=== PATIENT | male | born 1930 | race Caucasian/White ===

== ENCOUNTER → 2016-03-21 | Outpatient (CLI) | payer MEDICARE ==
[~2016-03-21] MED LIST: ASPIRIN81 M1 PO; ATIVAN0.5 MG PO; ATIVAN1 MG PO; BUMETANIDE1 MG PO; CARAFATE1 GM/10 ML PO; CIPRO500 MG PO; COREG25 MG PO; COREG6.25 MG PO; Carafate1 GM/10 ML PO; FEROSUL325 MG PO; FLAGYL500 MG PO; HCTZ PO; IMDUR SA30 MG PO; ISOSORBIDE MONO30 MG PO; KLOR-CON M2020 ME1 PO; LEVAQUIN750 M1 PO; NORVASC10 MG PO; NORVASC5 MG PO; PANTOPRAZOLE SO40 MG PO; PLAVIX75 M1 PO; POTASSIUM CHLO20 MEQ PO; PRAVACHOL40 MG PO; PROTONIX40 MG PO; VYTORIN 10 MG-11 TA1 PO; [UNRECOGNIZED DRUG - OTHER] PO
== END | disposition home or self-care (01) ==
LOC: CT 10:38
DX: C78.7 Secondary malignant neoplasm of liver and intrahepatic bile duct (principal); C18.9 Malignant neoplasm of colon, unspecified; K27.4 Chronic or unspecified peptic ulcer, site unspecified, with hemorrhage; N28.1 Cyst of kidney, acquired; R10.13 Epigastric pain; K57.30 Diverticulosis of large intestine without perforation or abscess without bleeding; K80.20 Calculus of gallbladder without cholecystitis without obstruction; R11.0 Nausea; I51.7 Cardiomegaly; Z85.46 Personal history of malignant neoplasm of prostate

== ENCOUNTER 2016-09-13 09:47 | Inpatient (IN) | payer MEDICARE ==
[~2016-09-13] VITALS: Ht 170.1 cm; Wt 87.6 kg
[2016-09-13 09:51] VITALS: BP 138/66
[2016-09-13 10:08] LABS: BILIRUBIN 1+ (NEGATIVE); BLOOD NEGATIVE (NEGATIVE); CLARITY SL CLOUDY (CLEAR); COLOR YELLOW (YELLOW); GLUCOSE NEGATIVE (NEGATIVE); KETONE NEGATIVE (NEGATIVE); LEUKO ESTERASE NEGATIVE (NEGATIVE); NITRITE NEGATIVE (NEGATIVE); PROTEIN NEGATIVE (NEGATIVE)
[2016-09-13] MEDS ORDERED: PLAVIX75 M1 PO (10:15)
[2016-09-13 10:18] LABS: BACTERIA TRACE; EPITHELIAL CELLS 0-2; URINE REFLEX COMMENT NO (NO)
[2016-09-13 10:35] LABS: BASO % 0.2 % (0.0-1.0); EOS % 0.2 % (1.0-4.0); HEMATOCRIT 32.8 % (42.0-52.0); HEMOGLOBIN 9.7 g/dl (14.0-18.0); IG # 0.1 10*3/uL (0.0-0.1); LYMPH % 7.8 % (27.0-41.0); MEAN CELL VOLUME 75.8 fl (80.0-94.0); MEAN CORPUSCULAR HGB 22.4 pg (27.0-31.0); MEAN CORPUSCULAR HGB CONC 29.6 g/dl (33.0-37.0); MONO % 8.2 % (3.0-9.0); NEUT # 10.6 10*3/uL (2.3-7.9); NEUT % 83.2 % (47.0-73.0); PLATELET COUNT AUTOMATED 322 10*3/uL (130-400); RED BLOOD COUNT 4.33 10*6/uL (4.50-5.90); RED CELL DISTRI WIDTH 18.7 % (0-14.5); WHITE BLOOD COUNT 12.8 10*3/uL (4.8-10.8)
[2016-09-13 10:44] LABS: INTERNATIONAL NORM RATIO 1.1 (2.0-3.5); PROTHROMBIN TIME 11.7 SECONDS (9.0-12.4)
[2016-09-13 10:53] LABS: ALBUMIN 2.7 gm/dl (3.1-4.5); ALKALINE PHOSPHATASE 288 U/L (45-117); BUN 18 mg/dl (7-24); C-REACTIVE PROTEIN 7.98 MG/DL (0-0.3); CARBON DIOXIDE 25 mmol/L (21-32); CHLORIDE 103 mmol/L (98-107); CKMB 1.1 ng/ml (0.5-3.6); CPK 237 U/L (39-308); EST GLOM FILT AFRICAN AMERICAN > 60 ml/min; GLUCOSE 121 mg/dL (65-99); MAGNESIUM 2.2 mg/dL (1.5-2.1); POTASSIUM 3.7 mmol/L (3.5-5.1); SGOT/AST 207 IU/L (3-35); SGPT/ALT 211 U/L (12-78); SODIUM 139 mmol/L (136-145); TOTAL PROTEIN 7.3 gm/dL (6.4-8.2)
[2016-09-13 10:59] LABS: TROPONIN I < 0.015 ng/ml (<0.045)
[2016-09-13 11:01] VITALS: BP 128/64
[2016-09-13 11:31] VITALS: BP 123/58
[2016-09-13 13:10] VITALS: BP 123/45
[2016-09-13 16:00] VITALS: BP 131/55
[2016-09-13 20:00] VITALS: BP 133/52
[2016-09-14] VITALS: BP 109/59
[2016-09-14 06:01] LABS: ALBUMIN 2.3 gm/dl (3.1-4.5); ALKALINE PHOSPHATASE 233 U/L (45-117); BILIRUBIN, TOTAL 1.9 mg/dl (0.2-1.0); BUN 14 mg/dl (7-24); CARBON DIOXIDE 24 mmol/L (21-32); CHLORIDE 107 mmol/L (98-107); CHOLESTEROL 118 mg/dL (<200); EST GLOM FILT AFRICAN AMERICAN > 60 ml/min; FREE T4 1.04 ng/dl (0.76-1.46); GLUCOSE 102 mg/dL (65-99); HDL CHOLESTEROL 29 mg/dl (40-60); LDL CHOLESTEROL 76 mg/dL (9-159); PHOSPHOROUS 2.8 mg/dL (2.5-4.9); POTASSIUM 3.6 mmol/L (3.5-5.1); SGOT/AST 112 IU/L (3-35); SGPT/ALT 156 U/L (12-78); SODIUM 142 mmol/L (136-145); TOTAL PROTEIN 6.1 gm/dL (6.4-8.2); TRIGLYCERIDES 64 mg/dl (<150); VLDL CHOLESTEROL 13 mg/dL (6-40)
[2016-09-14 06:02] LABS: BASO % 0.2 % (0.0-1.0); EOS # 0.2 10*3/uL (0.0-0.4); EOS % 2.9 % (1.0-4.0); HEMATOCRIT 28.6 % (42.0-52.0); HEMOGLOBIN 8.3 g/dl (14.0-18.0); IG # 0.1 10*3/uL (0.0-0.1); LYMPH # 0.8 10*3/uL (1.3-4.4); LYMPH % 9.7 % (27.0-41.0); MEAN CELL VOLUME 76.3 fl (80.0-94.0); MEAN CORPUSCULAR HGB 22.1 pg (27.0-31.0); MEAN PLATELET VOLUME 9.4 fl (9.6-12.3); MONO # 0.8 10*3/uL (0.1-1.0); MONO % 10.2 % (3.0-9.0); NEUT # 6.3 10*3/uL (2.3-7.9); NEUT % 76.4 % (47.0-73.0); PLATELET COUNT AUTOMATED 292 10*3/uL (130-400); RED BLOOD COUNT 3.75 10*6/uL (4.50-5.90); RED CELL DISTRI WIDTH 18.6 % (0-14.5); WHITE BLOOD COUNT 8.2 10*3/uL (4.8-10.8)
[2016-09-14 06:58] LABS: HEMOGLOBIN A1c 5.1 % (4.8-5.6)
[2016-09-14 07:10] LABS: VITAMIN D, 25-HYDROXY 15.5 ng/mL (30-100)
[2016-09-14 07:19] LABS: FOLIC ACID > 24.00 ng/mL (>5.38)
[2016-09-14 08:00] VITALS: BP 109/54
[2016-09-14 12:00] VITALS: BP 112/56
[2016-09-14 16:00] VITALS: BP 117/55
[2016-09-14 20:00] VITALS: BP 111/55
[2016-09-15] VITALS: BP 104/48
[2016-09-15 06:27] LABS: BASO % 0.4 % (0.0-1.0); EOS # 0.4 10*3/uL (0.0-0.4); EOS % 5.7 % (1.0-4.0); HEMATOCRIT 28.1 % (42.0-52.0); HEMOGLOBIN 7.9 g/dl (14.0-18.0); LYMPH % 12.9 % (27.0-41.0); MEAN CELL VOLUME 77.4 fl (80.0-94.0); MEAN CORPUSCULAR HGB 21.8 pg (27.0-31.0); MEAN CORPUSCULAR HGB CONC 28.1 g/dl (33.0-37.0); MONO # 0.7 10*3/uL (0.1-1.0); MONO % 9.4 % (3.0-9.0); NEUT # 5.2 10*3/uL (2.3-7.9); NEUT % 71.2 % (47.0-73.0); PLATELET COUNT AUTOMATED 281 10*3/uL (130-400); RED BLOOD COUNT 3.63 10*6/uL (4.50-5.90); RED CELL DISTRI WIDTH 18.9 % (0-14.5); WHITE BLOOD COUNT 7.4 10*3/uL (4.8-10.8)
[2016-09-15 06:54] LABS: ALKALINE PHOSPHATASE 239 U/L (45-117); BILIRUBIN, TOTAL 0.8 mg/dl (0.2-1.0); BUN 17 mg/dl (7-24); CARBON DIOXIDE 24 mmol/L (21-32); CHLORIDE 109 mmol/L (98-107); EST GLOM FILT AFRICAN AMERICAN > 60 ml/min; GLUCOSE 96 mg/dL (65-99); PHOSPHOROUS 2.1 mg/dL (2.5-4.9); POTASSIUM 3.8 mmol/L (3.5-5.1); SGOT/AST 81 IU/L (3-35); SGPT/ALT 125 U/L (12-78); SODIUM 141 mmol/L (136-145); TOTAL PROTEIN 5.7 gm/dL (6.4-8.2)
[2016-09-15 08:00] VITALS: BP 102/42
[2016-09-15 10:45] VITALS: BP 100/48
[2016-09-15 16:00] VITALS: BP 109/59
[2016-09-15 20:00] VITALS: BP 117/55
[2016-09-16] VITALS: BP 111/50
[2016-09-16 06:29] LABS: BASO % 0.4 % (0.0-1.0); EOS # 0.5 10*3/uL (0.0-0.4); EOS % 6.9 % (1.0-4.0); HEMATOCRIT 29.4 % (42.0-52.0); HEMOGLOBIN 8.6 g/dl (14.0-18.0); LYMPH % 13.2 % (27.0-41.0); MEAN CORPUSCULAR HGB 22.8 pg (27.0-31.0); MEAN CORPUSCULAR HGB CONC 29.3 g/dl (33.0-37.0); MONO # 0.5 10*3/uL (0.1-1.0); MONO % 7.2 % (3.0-9.0); NEUT # 5.3 10*3/uL (2.3-7.9); NEUT % 71.9 % (47.0-73.0); PLATELET COUNT AUTOMATED 321 10*3/uL (130-400); RED BLOOD COUNT 3.77 10*6/uL (4.50-5.90); RED CELL DISTRI WIDTH 19.2 % (0-14.5); WHITE BLOOD COUNT 7.4 10*3/uL (4.8-10.8)
[2016-09-16 06:54] LABS: ALBUMIN 2.1 gm/dl (3.1-4.5); ALKALINE PHOSPHATASE 261 U/L (45-117); BILIRUBIN, TOTAL 0.5 mg/dl (0.2-1.0); BUN 14 mg/dl (7-24); CARBON DIOXIDE 26 mmol/L (21-32); CHLORIDE 111 mmol/L (98-107); EST GLOM FILT AFRICAN AMERICAN > 60 ml/min; GLUCOSE 91 mg/dL (65-99); MAGNESIUM 2.2 mg/dL (1.5-2.1); PHOSPHOROUS 1.8 mg/dL (2.5-4.9); POTASSIUM 4.2 mmol/L (3.5-5.1); SGOT/AST 44 IU/L (3-35); SGPT/ALT 97 U/L (12-78); SODIUM 144 mmol/L (136-145); TOTAL PROTEIN 5.9 gm/dL (6.4-8.2)
[2016-09-16 08:00] VITALS: BP 124/60
[2016-09-16 12:00] VITALS: BP 124/54
[2016-09-16 16:00] VITALS: BP 116/55
[2016-09-16] MEDS ORDERED: CIPRO500 MG PO (17:57)
[2016-09-16 20:00] VITALS: BP 124/57
[2016-09-17] VITALS: BP 113/55
[2016-09-17 06:10] LABS: BASO # 0.1 10*3/uL (0.0-0.1); BASO % 0.6 % (0.0-1.0); EOS # 0.6 10*3/uL (0.0-0.4); EOS % 6.9 % (1.0-4.0); HEMATOCRIT 31.2 % (42.0-52.0); LYMPH % 12.7 % (27.0-41.0); MEAN CELL VOLUME 78.2 fl (80.0-94.0); MEAN CORPUSCULAR HGB 22.6 pg (27.0-31.0); MEAN CORPUSCULAR HGB CONC 28.8 g/dl (33.0-37.0); MEAN PLATELET VOLUME 9.1 fl (9.6-12.3); MONO # 0.6 10*3/uL (0.1-1.0); MONO % 7.1 % (3.0-9.0); NEUT # 5.9 10*3/uL (2.3-7.9); NEUT % 72.2 % (47.0-73.0); PLATELET COUNT AUTOMATED 344 10*3/uL (130-400); RED BLOOD COUNT 3.99 10*6/uL (4.50-5.90); RED CELL DISTRI WIDTH 19.4 % (0-14.5); WHITE BLOOD COUNT 8.2 10*3/uL (4.8-10.8)
[2016-09-17 06:48] LABS: CHLORIDE 109 mmol/L (98-107); POTASSIUM 4.3 mmol/L (3.5-5.1); SODIUM 141 mmol/L (136-145)
[2016-09-17 06:53] LABS: ALBUMIN 2.1 gm/dl (3.1-4.5); ALKALINE PHOSPHATASE 248 U/L (45-117); BILIRUBIN, TOTAL 0.5 mg/dl (0.2-1.0); BUN 16 mg/dl (7-24); CARBON DIOXIDE 25 mmol/L (21-32); EST GLOM FILT AFRICAN AMERICAN > 60 ml/min; GLUCOSE 96 mg/dL (65-99); SGOT/AST 34 IU/L (3-35); SGPT/ALT 74 U/L (12-78); TOTAL PROTEIN 6.1 gm/dL (6.4-8.2)
[2016-09-17 08:00] VITALS: BP 138/60
[2016-09-17 12:00] VITALS: BP 136/74
[2016-09-17 16:00] VITALS: BP 111/46; BP 122/46
[2016-09-17 20:00] VITALS: BP 100/44
[2016-09-18] VITALS: BP 135/72
[2016-09-18 06:16] LABS: BASO # 0.1 10*3/uL (0.0-0.1); BASO % 0.6 % (0.0-1.0); EOS # 0.4 10*3/uL (0.0-0.4); EOS % 3.7 % (1.0-4.0); HEMATOCRIT 30.7 % (42.0-52.0); HEMOGLOBIN 8.9 g/dl (14.0-18.0); LYMPH # 1.1 10*3/uL (1.3-4.4); LYMPH % 11.6 % (27.0-41.0); MEAN CELL VOLUME 77.5 fl (80.0-94.0); MEAN CORPUSCULAR HGB 22.5 pg (27.0-31.0); MEAN PLATELET VOLUME 9.5 fl (9.6-12.3); MONO # 0.6 10*3/uL (0.1-1.0); MONO % 6.5 % (3.0-9.0); NEUT # 7.6 10*3/uL (2.3-7.9); NEUT % 77.2 % (47.0-73.0); PLATELET COUNT AUTOMATED 370 10*3/uL (130-400); RED BLOOD COUNT 3.96 10*6/uL (4.50-5.90); RED CELL DISTRI WIDTH 19.5 % (0-14.5); WHITE BLOOD COUNT 9.9 10*3/uL (4.8-10.8)
[2016-09-18 06:38] LABS: ALBUMIN 2.2 gm/dl (3.1-4.5); ALKALINE PHOSPHATASE 232 U/L (45-117); BILIRUBIN, TOTAL 0.5 mg/dl (0.2-1.0); BUN 17 mg/dl (7-24); CARBON DIOXIDE 25 mmol/L (21-32); CHLORIDE 106 mmol/L (98-107); EST GLOM FILT AFRICAN AMERICAN > 60 ml/min; GLUCOSE 95 mg/dL (65-99); MAGNESIUM 2.1 mg/dL (1.5-2.1); POTASSIUM 3.9 mmol/L (3.5-5.1); SGOT/AST 26 IU/L (3-35); SGPT/ALT 59 U/L (12-78); SODIUM 140 mmol/L (136-145); TOTAL PROTEIN 6.2 gm/dL (6.4-8.2)
[2016-09-18 08:00] VITALS: BP 131/63
[2016-09-18 12:00] VITALS: BP 131/58
== END 2016-09-18 15:24 | disposition other institution (70) | DRG 435 ==
LOC: ED 09:47 → 5E 11:26 → EDHOLD 11:26 → 5E 11:36
PROVIDERS: Emergency Medicine; Internal Medicine
DX: C78.7 Secondary malignant neoplasm of liver and intrahepatic bile duct (principal); E43 Unspecified severe protein-calorie malnutrition; G93.41 Metabolic encephalopathy; E86.0 Dehydration; C18.9 Malignant neoplasm of colon, unspecified; R78.81 Bacteremia; I11.9 Hypertensive heart disease without heart failure; E78.5 Hyperlipidemia, unspecified; D50.9 Iron deficiency anemia, unspecified; R10.10 Upper abdominal pain, unspecified; R26.81 Unsteadiness on feet; R07.9 Chest pain, unspecified; D72.820 Lymphocytosis (symptomatic); K80.20 Calculus of gallbladder without cholecystitis without obstruction; H91.90 Unspecified hearing loss, unspecified ear; Z96.652 Presence of left artificial knee joint; Z85.038 Personal history of other malignant neoplasm of large intestine; Z90.79 Acquired absence of other genital organ(s); Z85.46 Personal history of malignant neoplasm of prostate; Z98.61 Coronary angioplasty status; Z82.3 Family history of stroke; Z91.81 History of falling; Z79.899 Other long term (current) drug therapy

== ENCOUNTER 2016-10-29 07:57 | Inpatient (IN) | payer MEDICARE ==
[~2016-10-29] VITALS: Ht 182.8 cm; Wt 71.8 kg
[2016-10-29 07:57] VITALS: BP 119/54
[2016-10-29 08:59] LABS: BASO # 0.1 10*3/uL (0.0-0.1); BASO % 0.4 % (0.0-1.0); EOS # 0.1 10*3/uL (0.0-0.4); EOS % 0.4 % (1.0-4.0); HEMATOCRIT 39.1 % (42.0-52.0); HEMOGLOBIN 11.8 g/dl (14.0-18.0); IG # 0.1 10*3/uL (0.0-0.1); LYMPH # 1.2 10*3/uL (1.3-4.4); LYMPH % 7.1 % (27.0-41.0); MEAN CORPUSCULAR HGB 23.2 pg (27.0-31.0); MEAN CORPUSCULAR HGB CONC 30.2 g/dl (33.0-37.0); MEAN PLATELET VOLUME 9.5 fl (9.6-12.3); MONO # 0.8 10*3/uL (0.1-1.0); NEUT # 14.7 10*3/uL (2.3-7.9); NEUT % 86.6 % (47.0-73.0); PLATELET COUNT AUTOMATED 404 10*3/uL (130-400); RED BLOOD COUNT 5.08 10*6/uL (4.50-5.90); RED CELL DISTRI WIDTH 18.3 % (0-14.5)
[2016-10-29 09:05] LABS: BILIRUBIN NEGATIVE (NEGATIVE); BLOOD NEGATIVE (NEGATIVE); CLARITY CLEAR (CLEAR); COLOR YELLOW (YELLOW); GLUCOSE NEGATIVE (NEGATIVE); KETONE NEGATIVE (NEGATIVE); LEUKO ESTERASE NEGATIVE (NEGATIVE); NITRITE NEGATIVE (NEGATIVE); PROTEIN NEGATIVE (NEGATIVE); UROBILINOGEN 0.2 E.U./dl (0.2-1.0)
[2016-10-29 09:10] LABS: RBC 0-2 rbc/hpf (0-2); URINE REFLEX COMMENT NO (NO)
[2016-10-29 09:14] LABS: ALBUMIN 3.5 gm/dl (3.1-4.5); BILIRUBIN, TOTAL 0.4 mg/dl (0.2-1.0); POTASSIUM 2.8 mmol/L (3.5-5.1); TOTAL PROTEIN 9.1 gm/dL (6.4-8.2)
[2016-10-29 10:12] VITALS: BP 132/77
[2016-10-29 12:00] VITALS: BP 121/74
[2016-10-29] MEDS ORDERED: EFFEXOR XR37.5 M1 PO (12:20)
[2016-10-29] MEDS ORDERED: RESTORIL15 MG PO (12:22)
[2016-10-29] MEDS ORDERED: TYLENOL325 M1 PO (12:23)
[2016-10-29] MEDS ORDERED: TWOCAL HN 237237 ML PO (12:26)
[2016-10-29 13:01] LABS: LA>2 REFLEX 2 HR DRAW NOW
[2016-10-29 13:20] LABS: LA>2 RFLX FOLLOW UP AT 2 HRS 2.7 mmol/L (0.4-2.0)
[2016-10-29 15:14] LABS: LA>2 REFLEX 4 HR DRAW NOW
[2016-10-29 16:00] VITALS: BP 132/63
[2016-10-30] VITALS: BP 118/58
[2016-10-30 04:49] LABS: BASO % 0.3 % (0.0-1.0); EOS # 0.1 10*3/uL (0.0-0.4); HEMATOCRIT 35.3 % (42.0-52.0); HEMOGLOBIN 10.3 g/dl (14.0-18.0); IG # 0.1 10*3/uL (0.0-0.1); LYMPH % 8.9 % (27.0-41.0); MEAN CELL VOLUME 78.3 fl (80.0-94.0); MEAN CORPUSCULAR HGB 22.8 pg (27.0-31.0); MEAN CORPUSCULAR HGB CONC 29.2 g/dl (33.0-37.0); MEAN PLATELET VOLUME 9.2 fl (9.6-12.3); MONO # 0.7 10*3/uL (0.1-1.0); MONO % 6.2 % (3.0-9.0); NEUT # 9.7 10*3/uL (2.3-7.9); NEUT % 83.2 % (47.0-73.0); PLATELET COUNT AUTOMATED 301 10*3/uL (130-400); RED BLOOD COUNT 4.51 10*6/uL (4.50-5.90); RED CELL DISTRI WIDTH 18.4 % (0-14.5); WHITE BLOOD COUNT 11.7 10*3/uL (4.8-10.8)
[2016-10-30 05:07] LABS: ALBUMIN 2.8 gm/dl (3.1-4.5); BILIRUBIN, TOTAL 0.4 mg/dl (0.2-1.0); MAGNESIUM 2.9 mg/dL (1.5-2.1); PHOSPHOROUS 2.7 mg/dL (2.5-4.9); POTASSIUM 2.6 mmol/L (3.5-5.1); TOTAL PROTEIN 7.5 gm/dL (6.4-8.2)
[2016-10-30 08:00] VITALS: BP 148/64
[2016-10-30 12:00] VITALS: BP 156/78
[2016-10-30 16:00] VITALS: BP 141/57
[2016-10-30 20:00] VITALS: BP 143/76
[2016-10-31] VITALS: BP 126/65
[2016-10-31 05:45] LABS: ALBUMIN 2.6 gm/dl (3.1-4.5); ALKALINE PHOSPHATASE 120 U/L (45-117); BILIRUBIN, TOTAL 0.4 mg/dl (0.2-1.0); CARBON DIOXIDE 28 mmol/L (21-32); CHLORIDE 111 mmol/L (98-107); EST GLOM FILT AFRICAN AMERICAN > 60 ml/min; GLUCOSE 103 mg/dL (65-99); POTASSIUM 2.8 mmol/L (3.5-5.1); SGOT/AST 18 IU/L (3-35); SGPT/ALT 13 U/L (12-78); SODIUM 147 mmol/L (136-145); TOTAL PROTEIN 7.1 gm/dL (6.4-8.2)
[2016-10-31 05:50] LABS: BUN 40 mg/dl (7-24)
[2016-10-31 06:10] LABS: BASO # 0.1 10*3/uL (0.0-0.1); BASO % 0.4 % (0.0-1.0); EOS # 0.2 10*3/uL (0.0-0.4); EOS % 1.4 % (1.0-4.0); HEMATOCRIT 32.9 % (42.0-52.0); HEMOGLOBIN 9.6 g/dl (14.0-18.0); IG # 0.1 10*3/uL (0.0-0.1); LYMPH # 1.4 10*3/uL (1.3-4.4); LYMPH % 10.2 % (27.0-41.0); MEAN CELL VOLUME 80.8 fl (80.0-94.0); MEAN CORPUSCULAR HGB 23.6 pg (27.0-31.0); MEAN CORPUSCULAR HGB CONC 29.2 g/dl (33.0-37.0); MEAN PLATELET VOLUME 9.9 fl (9.6-12.3); MONO # 1.1 10*3/uL (0.1-1.0); MONO % 7.4 % (3.0-9.0); NEUT # 11.3 10*3/uL (2.3-7.9); NEUT % 80.2 % (47.0-73.0); PLATELET COUNT AUTOMATED 275 10*3/uL (130-400); RED BLOOD COUNT 4.07 10*6/uL (4.50-5.90); RED CELL DISTRI WIDTH 18.6 % (0-14.5); WHITE BLOOD COUNT 14.1 10*3/uL (4.8-10.8)
[2016-10-31 08:00] VITALS: BP 134/64
[2016-10-31 16:00] VITALS: BP 133/60
[2016-11-01] VITALS: BP 148/70
[2016-11-01 05:24] LABS: ALBUMIN 2.5 gm/dl (3.1-4.5); ALKALINE PHOSPHATASE 107 U/L (45-117); BILIRUBIN, TOTAL 0.4 mg/dl (0.2-1.0); CARBON DIOXIDE 28 mmol/L (21-32); CHLORIDE 114 mmol/L (98-107); EST GLOM FILT AFRICAN AMERICAN > 60 ml/min; GLUCOSE 126 mg/dL (65-99); POTASSIUM 3.2 mmol/L (3.5-5.1); SGOT/AST 17 IU/L (3-35); SGPT/ALT 14 U/L (12-78); SODIUM 147 mmol/L (136-145)
[2016-11-01 05:27] LABS: BUN 26 mg/dl (7-24)
[2016-11-01 05:54] LABS: BASO # 0.1 10*3/uL (0.0-0.1); BASO % 0.4 % (0.0-1.0); EOS # 0.2 10*3/uL (0.0-0.4); EOS % 1.5 % (1.0-4.0); HEMATOCRIT 31.8 % (42.0-52.0); HEMOGLOBIN 9.3 g/dl (14.0-18.0); LYMPH % 8.2 % (27.0-41.0); MEAN CELL VOLUME 81.1 fl (80.0-94.0); MEAN CORPUSCULAR HGB 23.7 pg (27.0-31.0); MEAN CORPUSCULAR HGB CONC 29.2 g/dl (33.0-37.0); MEAN PLATELET VOLUME 9.8 fl (9.6-12.3); MONO # 0.8 10*3/uL (0.1-1.0); MONO % 6.3 % (3.0-9.0); NEUT # 10.3 10*3/uL (2.3-7.9); NEUT % 83.3 % (47.0-73.0); PLATELET COUNT AUTOMATED 273 10*3/uL (130-400); RED BLOOD COUNT 3.92 10*6/uL (4.50-5.90); RED CELL DISTRI WIDTH 18.5 % (0-14.5); WHITE BLOOD COUNT 12.4 10*3/uL (4.8-10.8)
[2016-11-01 08:00] VITALS: BP 150/75
[2016-11-01 12:00] VITALS: BP 107/58
== END 2016-11-01 12:45 | disposition other institution (70) | DRG 871 ==
LOC: ED 07:57 → EDHOLD 11:00 → 4E 11:00 → 5E 11:20 → 4E 11:40
PROVIDERS: Emergency Medicine; Internal Medicine Hospice and Palliative Medicine; Registered Nurse
DX: A41.9 Sepsis, unspecified organism (principal); G93.41 Metabolic encephalopathy; E43 Unspecified severe protein-calorie malnutrition; N17.9 Acute kidney failure, unspecified; E87.0 Hyperosmolality and hypernatremia; C78.7 Secondary malignant neoplasm of liver and intrahepatic bile duct; K92.2 Gastrointestinal hemorrhage, unspecified; E86.0 Dehydration; E87.2 Acidosis; C18.9 Malignant neoplasm of colon, unspecified; E87.8 Other disorders of electrolyte and fluid balance, not elsewhere classified; E83.39 Other disorders of phosphorus metabolism; Z66 Do not resuscitate; Z51.5 Encounter for palliative care; Z96.652 Presence of left artificial knee joint; E78.5 Hyperlipidemia, unspecified; D47.3 Essential (hemorrhagic) thrombocythemia; E87.6 Hypokalemia; D64.9 Anemia, unspecified; R73.9 Hyperglycemia, unspecified; E83.41 Hypermagnesemia; I10 Essential (primary) hypertension; Z79.899 Other long term (current) drug therapy; Z68.21 Body mass index [BMI] 21.0-21.9, adult; Z85.46 Personal history of malignant neoplasm of prostate; Z90.79 Acquired absence of other genital organ(s); Z82.3 Family history of stroke

== ENCOUNTER 2017-01-02 01:19 | Inpatient (IN) | payer MEDICARE ==
[~2017-01-02] VITALS: Ht 170.1 cm; Wt 71.7 kg
--- NOTE | ~2017-01-02 | CON ---
[place], [place] REPORT OF CONSULTATION NAME: CHARLA WELCH [facility] #: [id number] UNIT #: [id number] ROOM: 506 DOCTOR: JAYDEN SINGH MD BIRTHDATE: [birth year] DOS: 01/02/2017 ATTENDING PHYSICIAN: Dr. Germaine Scott. 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 1. History of benign essential hypertension. 2. Generalized weakness and adult failure to thrive and old age. 3. Generalized weakness and adult failure to thrive. 4. History of prostate cancer in the remote past. 5. Mixed hyperlipidemia. 6. Severe protein-calorie malnutrition. 7. Unsteady gait with ambulatory dysfunction. The patient is presently admitted under care of Dr. Germaine Scott and Dr. Dennis Saha. With acute GI bleed and history of colon cancer with liver metastasis; apparently, the patient is without any chest pain, no shortness of breath, but he has excessive weakness and is also mentally confused. The patient's family as recorded. does not want any aggressive measures and chest for the patient to be kept comfortable. Presently, the patient is receiving hydration with IV fluids and comfort measures only. The patient maintains a DNR comfort care code status. REVIEW OF SYSTEMS: LUNGS: No increasing shortness of breath or wheezing. GASTROINTESTINAL: The patient was observed to have blood in his stools. CARDIOVASCULAR: No chest pain or palpitations. SOCIAL HISTORY: No recent nicotine, alcohol or drug abuse. FAMILY HISTORY: Noncontributory for any issues. PRESENT MEDICATIONS: The patient on temazepam, hydration with IV fluids, Vicodin and IV morphine as needed. ALLERGIES: No known drug allergies. PHYSICAL EXAMINATION: GENERAL: Awake, alert, very weak, unable to answer questions, just follows basic commands. The patient able to move all extremities except for mental confusion and generalized weakness. LABORATORY DATA: PT, PTT baseline. Vitamin D level is low at 10, potassium level low at 3.4, sodium 134, BUN and creatinine normal. Hemoglobin low at 9.1 with MCV low at 77 and MCH low at 23, platelets normal. Albumin low at 2.3. IMPRESSION AND PLAN: The patient with old age, advanced disability and adult failure to thrive with advanced metastatic colon cancer with metastasis to the liver, presently with acute gastrointestinal bleed. The patient maintains a DNR [place], [place] REPORT OF CONSULTATION NAME: CHARLA WELCH UNIT #: [id number] ROOM: 506 DOCTOR: JAYDEN SINGH MD BIRTHDATE: [birth year] comfort care code status. The patient requires end of life care with hospice consult, which can be performed if the patient's family wants to take him home, but then somebody will require to stay with them, 24 hours a day to provide comfort care versus the patient can be transferred to a nursing facility with hospice consult. I recommend sublingual morphine concentrate, Roxanol and Ativan to be used 10-20 mg every 1-2 hours only as needed because the patient is very comfortable at the moment. For anxiety and agitation, the patient can also use 1-2 mg of Ativan oral concentrate every 4 hours as needed for comfort care. In case of extra respiratory secretions and congestion, the patient can be given atropine drops as needed. The feeding as tolerated orally, every 2 hour turning to prevent bedsores and good skin care and hygiene. The patient's prognosis remains extremely poor and he is appropriately being treated with comfort care measures only. I am trying to contact the patient's , Florencia Welch, so I can discuss these measures with her and to decide on the future course of treatment. Two attempts were made to contact his and she was not available by the phone. Thank you, Dr. Germaine Scott and Dr. Dennis Saha for consulting me. We will follow the patient along with you. JAYDEN SINGH MD CM:CONSTR:REPORT OF CONSULTATION 16 01/02/172225 interface
[~2017-01-02 01:19] MED LIST changes: +EFFEXOR XR37.5 M1 PO; +RESTORIL15 MG PO; +TWOCAL HN 237237 ML PO; +TYLENOL325 M1 PO
[2017-01-02 01:25] VITALS: BP 128/53
[2017-01-02 01:51] LABS: BASO # 0.1 10*3/uL (0.0-0.1); BASO % 0.4 % (0.0-1.0); EOS # 0.2 10*3/uL (0.0-0.4); EOS % 1.4 % (1.0-4.0); HEMOGLOBIN 9.1 g/dl (14.0-18.0); LYMPH # 1.7 10*3/uL (1.3-4.4); LYMPH % 14.4 % (27.0-41.0); MEAN CELL VOLUME 76.3 fl (80.0-94.0); MEAN CORPUSCULAR HGB 23.2 pg (27.0-31.0); MEAN CORPUSCULAR HGB CONC 30.3 g/dl (33.0-37.0); MEAN PLATELET VOLUME 8.4 fl (9.6-12.3); MONO # 0.9 10*3/uL (0.1-1.0); MONO % 7.7 % (3.0-9.0); NEUT % 75.5 % (47.0-73.0); PLATELET COUNT AUTOMATED 404 10*3/uL (130-400); RED BLOOD COUNT 3.93 10*6/uL (4.50-5.90); RED CELL DISTRI WIDTH 18.2 % (0-14.5); WHITE BLOOD COUNT 11.9 10*3/uL (4.8-10.8)
[2017-01-02 02:03] LABS: ACT PARTIAL THROMBO TIME 27.5 SECONDS (20.8-31.5)
[2017-01-02 02:08] VITALS: BP 117/51
[2017-01-02 02:08] LABS: ALBUMIN 2.3 gm/dl (3.1-4.5); ALKALINE PHOSPHATASE 109 U/L (45-117); BUN 29 mg/dl (7-24); CHLORIDE 94 mmol/L (98-107); CREATININE 1.08 mg/dL (0.70-1.30); POTASSIUM 3.8 mmol/L (3.5-5.1); SGOT/AST 16 IU/L (3-35); SGPT/ALT 14 U/L (12-78); SODIUM 134 mmol/L (136-145); TOTAL PROTEIN 7.2 gm/dL (6.4-8.2)
[2017-01-02 02:09] LABS: TROPONIN I < 0.015 ng/ml (<0.045)
[2017-01-02 02:30] VITALS: BP 124/53
[2017-01-02 03:00] VITALS: BP 126/69
--- NOTE | 2017-01-02 03:00 | NUR ---
Time: 299 A 86 year old MALE admitted to 5E under services of DANIEL LOMBARDO DO. Pt. arrived via stretcher from ER. Chief complaint: CAME IN FROM [facility] WITH C/O BRIGHT RED RECTAL BLEEDING. JESENIA KENNEDY
--- NOTE | 2017-01-02 03:12 | NUR ---
PT INCONT OF LARGE AMOUNT OF LIQUID BLACK/BROWN STOOL. PT CLEANED AND BED CHANGED TOLERATED WELL. SKIN INTACT. REDDENED COCCYX BUTTOCKS BUT INTACT. WELL HEELS REDDENED BUT INTACT AND BLANCHEABLE
[2017-01-02] MEDS ORDERED: BISACODYL5 MG PO (03:44)
[2017-01-02] MEDS ORDERED: Zofran4 MG SL (03:45)
[2017-01-02 06:37] LABS: BASO # 0.1 10*3/uL (0.0-0.1); BASO % 0.8 % (0.0-1.0); EOS # 0.2 10*3/uL (0.0-0.4); EOS % 1.8 % (1.0-4.0); HEMATOCRIT 30.3 % (42.0-52.0); HEMOGLOBIN 9.1 g/dl (14.0-18.0); LYMPH # 1.5 10*3/uL (1.3-4.4); LYMPH % 14.1 % (27.0-41.0); MEAN CELL VOLUME 77.7 fl (80.0-94.0); MEAN CORPUSCULAR HGB 23.3 pg (27.0-31.0); MEAN PLATELET VOLUME 8.6 fl (9.6-12.3); MONO # 0.9 10*3/uL (0.1-1.0); MONO % 8.2 % (3.0-9.0); NEUT # 7.7 10*3/uL (2.3-7.9); NEUT % 74.3 % (47.0-73.0); PLATELET COUNT AUTOMATED 410 10*3/uL (130-400); RED CELL DISTRI WIDTH 18.5 % (0-14.5); WHITE BLOOD COUNT 10.4 10*3/uL (4.8-10.8)
[2017-01-02 06:57] LABS: BUN 30 mg/dl (7-24); CHLORIDE 97 mmol/L (98-107); CREATININE 1.04 mg/dL (0.70-1.30); POTASSIUM 3.4 mmol/L (3.5-5.1); SODIUM 134 mmol/L (136-145)
[2017-01-02 07:04] LABS: VITAMIN D, 25-HYDROXY 10.7 ng/mL (30-100)
[2017-01-02 07:17] LABS: ACT PARTIAL THROMBO TIME 27.4 SECONDS (20.8-31.5)
[2017-01-02 08:00] VITALS: BP 124/69
--- NOTE | 2017-01-02 08:48 | NUR ---
Patient is LTC at [facility] and can return when medically stable for discharge.
--- NOTE | 2017-01-02 10:05 | NUR ---
PATIENT ATTENDANT REPORTS DARK TAR LIKE STOOLS WHEN BATHING THE PATIENT.
--- NOTE | 2017-01-02 10:36 | NUR ---
ATTEMPTED TO CALL CONSULT FOR PALIATIVE CARE. SENT TO [facility] OF ARACELI BENAVIDEZ CNP. A MESSAGE WAS LEFT WITH A REQUEST TO CALL BACK.
--- NOTE | 2017-01-02 10:59 | NUR ---
PHYSICAL THERAPY PAtient unable to verbally communitcate or participate in PT this date. PAtient just stares. Will attempt at a later date. Thank you for this referral. Breann Hernandez,PT
[2017-01-02 16:00] VITALS: BP 113/55
--- NOTE | 2017-01-02 21:00 | NUR ---
RESTING WITH EYES CLOSED. RESPIRATIONS EASY. LUNGS DIMINISHED, CLEAR. TRACE BLE EDEMA, TEDS APPLIED PER ORDER. IV FLUIDS INFUSING PER ORDER. CALL LIGHT WITHIN REACH. BED ALARM MAINTAINED FOR SAFETY
[2017-01-03] VITALS: BP 116/57
--- NOTE | 2017-01-03 | NUR ---
SLEEPING. NO DISTRESS NOTED. RESPIRATIONS EASY. VSS. IV FLUIDS MAINTAINED. CALL LIGHT WITHIN REACH. BED ALARM IN PLACE FOR SAFETY
--- NOTE | 2017-01-03 06:00 | NUR ---
SLEPT THROUGHOUT NIGHT WITH NO DISTRESS NOTED. RESPIRATIONS EASY. IV FLUIDS MAINTAINED. CALL LIGHT WITHIN REACH. BED ALARM MAINTAINED FOR SAFETY
[2017-01-03 06:49] LABS: BASO # 0.1 10*3/uL (0.0-0.1); BASO % 0.6 % (0.0-1.0); EOS # 0.2 10*3/uL (0.0-0.4); EOS % 1.6 % (1.0-4.0); HEMATOCRIT 27.3 % (42.0-52.0); LYMPH % 10.3 % (27.0-41.0); MEAN CELL VOLUME 78.4 fl (80.0-94.0); MEAN CORPUSCULAR HGB CONC 29.3 g/dl (33.0-37.0); MEAN PLATELET VOLUME 8.5 fl (9.6-12.3); MONO # 0.6 10*3/uL (0.1-1.0); MONO % 6.7 % (3.0-9.0); NEUT # 7.6 10*3/uL (2.3-7.9); NEUT % 80.2 % (47.0-73.0); PLATELET COUNT AUTOMATED 354 10*3/uL (130-400); RED BLOOD COUNT 3.48 10*6/uL (4.50-5.90); RED CELL DISTRI WIDTH 18.5 % (0-14.5); WHITE BLOOD COUNT 9.4 10*3/uL (4.8-10.8)
[2017-01-03 06:56] LABS: BUN 21 mg/dl (7-24); CHLORIDE 105 mmol/L (98-107); CREATININE 0.76 mg/dL (0.70-1.30); POTASSIUM 3.3 mmol/L (3.5-5.1); SODIUM 139 mmol/L (136-145)
--- NOTE | 2017-01-03 07:56 | NUR ---
Shift chart check completed.
[2017-01-03 08:00] VITALS: BP 115/50
[2017-01-03] MEDS ORDERED: MORPHINE S10 MG/5 M1 PO (09:49)
[2017-01-03] MEDS ORDERED: ATIVAN0.5 MG PO (09:49)
--- NOTE | 2017-01-03 10:39 | NUR ---
PHYSICAL THERAPY Patient is intermediate care and possible d/c to facility this date. will check status at a later date. Thank you for this referral. Breann Hernandez,PT
--- NOTE | 2017-01-03 11:13 | NUR ---
Contacted Geno muro at [facility], notified patient is being discharged and is DNRCC, notes state he is comfort care and not to return to the hospital. Also notified of [facility] order to follow at [place]. She stated because the patient resides in [place] the only hospice company that can follow is [facility]. She stated to have patient return to [facility] and she will take care of contacting family and notifying hospice.
--- NOTE | 2017-01-03 11:26 | NUR ---
Patient is being discharged back to [facility]. Transportation scheduled for 1PM with [facility], and nursing notified.
--- NOTE | 2017-01-03 12:59 | NUR ---
REMOVED IV WITH CATHETER INTACT AND BLEEDING CONTROLLED. SCRIPTS SENT IN PACKET TO [facility]. REPORT CALLED TO TOSIN AT [facility]. PATIENT IS D/C WITH [facility]
== END 2017-01-03 13:02 | DRG 377 ==
LOC: ED 01:19 → EDHOLD 02:20 → 5E 02:20
PROVIDERS: Internal Medicine; Student in an Organized Health Care Education/Training Program; ADMIT Internal Medicine
DX: K92.2 Gastrointestinal hemorrhage, unspecified (principal); E43 Unspecified severe protein-calorie malnutrition; C78.7 Secondary malignant neoplasm of liver and intrahepatic bile duct; R65.10 Systemic inflammatory response syndrome (SIRS) of non-infectious origin without acute organ dysfunction; E87.8 Other disorders of electrolyte and fluid balance, not elsewhere classified; E87.1 Hypo-osmolality and hyponatremia; C18.9 Malignant neoplasm of colon, unspecified; Z68.24 Body mass index [BMI] 24.0-24.9, adult; Z51.5 Encounter for palliative care; Z66 Do not resuscitate; R26.81 Unsteadiness on feet; R73.9 Hyperglycemia, unspecified; I10 Essential (primary) hypertension; E78.2 Mixed hyperlipidemia; D50.9 Iron deficiency anemia, unspecified; D47.3 Essential (hemorrhagic) thrombocythemia; Z96.652 Presence of left artificial knee joint; Z85.46 Personal history of malignant neoplasm of prostate; Z82.3 Family history of stroke; Z79.899 Other long term (current) drug therapy